=== PATIENT | female | born 1935 | race Caucasian/White ===

== ENCOUNTER 2018-03-30 05:25 | Day surgery (SDC) | payer OTHER ==
[~2018-03-30] VITALS: Ht 152.4 cm; Wt 48.1 kg
--- NOTE | ~2018-03-30 | O ---
[facility] [place] [address] OPERATIVE REPORT Name: GEETHA CARTER Room #: 150-5 [facility]#: [id number] Admission: 03/30/18 Attend Phys: Paulino Rosas MD Discharge: Date of : 31 Report #: [id number] THIS REPORT FOR: //name// CC: Graham Rosas DATE OF SERVICE: 03/30/2018 SURGEON: Paulino Rosas MD TERMINAL SUPERINTENDENT: None. PREOPERATIVE DIAGNOSIS: Bilateral lower lid ectropion. POSTOPERATIVE DIAGNOSIS: Bilateral lower lid ectropion. OPERATION PERFORMED: Bilateral lower lid ectropion repair. ANESTHESIA: Local with IV sedation. COMPLICATIONS: None. INDICATIONS FOR PROCEDURE: This patient has bilateral acquired lower lid ectropion with chronic tearing and discharge. The current procedures are undertaken in order to improve the patient's visual function, lacrimal outflow, and level of comfort. Informed consent was obtained to include but not limit to the risk of loss of vision, bleeding, infection, scarring, failure to improve the problem and need for further surgery. DESCRIPTION OF OPERATION: The patient was taken to the operating room where 2% Xylocaine with epinephrine mixed with equal parts of 0.75% Marcaine with Wydase was administered transcutaneously and transconjunctivally to each lower lid and lateral canthal area. The patient was then prepped and draped in the usual sterile fashion. A Zehar clamp was then used to clamp the left lateral canthus following which a sharp canthotomy and cantholysis were performed. The tarsal strip was prepared laterally, removing the lash bearing portion of the redundant lid margin and the redundant tarsal plate. Hemostasis was achieved with a monopolar cautery, as it was throughout the case. The tarsal strip was then secured to the internal portion of the lateral orbital tubercle with two interrupted 5-0 Prolene sutures. The lateral canthal angle was sharply reformed as the subcutaneous structures and the skin were closed with multiple interrupted 6-0 plain gut sutures. Attention was then turned to the right side where the same procedure was [facility] [address] [place] [address] OPERATIVE REPORT Name: EMMAGEETHA Room #: 150-5 [facility]#: [id number] Admission: 03/30/18 Attend Phys: Paulino Rosas MD Discharge: Date of : 31 Report #: [id number] performed. The wounds were cleaned and dressed with ophthalmic antibiotic ointment. The patient was then transported to the recovery area, having tolerated the procedure well with no anesthetic or operative complications being noted. By: [id number] Paulino Rosas MD /nt
[~2018-03-30 05:25] MED LIST: ASPIR 8181 MG PO; BUSPIRONE HCL10 MG PO; CELEBREX 200 M200 M1 PO; HYDROCHLOROTH12.5 M1 PO; NORVASC10 MG PO; OXYBUTYNIN 5 MG5 M2 PO; PRESERVISION A1 EACH PO; PRILOSEC 20 MG20 MG PO; RESTASIS1 EACH OPHTHALMIC; VITAMIN B-12500 MCG PO; ZOCOR20 MG PO; [UNRECOGNIZED DRUG - OTHER] PO
[2018-03-30 08:09] LABS: CALCIUM 9.5 mg/dL (8.5-10.1); CREATININE 0.7 mg/dL (0.6-1.0); POTASSIUM 3.5 mmol/L (3.5-5.1)
[2018-03-30 08:28] VITALS: BP 139/70
== END 2018-03-30 10:40 | disposition home or self-care (01) ==
LOC: OR 05:25 → TBA 05:26 → OR 10:26
PROVIDERS: Ophthalmology
DX: H02.105 Unspecified ectropion of left lower eyelid (principal); H02.102 Unspecified ectropion of right lower eyelid; I10 Essential (primary) hypertension; E78.5 Hyperlipidemia, unspecified; K21.9 Gastro-esophageal reflux disease without esophagitis; F32.9 Major depressive disorder, single episode, unspecified; F41.9 Anxiety disorder, unspecified; Z85.828 Personal history of other malignant neoplasm of skin; Z90.710 Acquired absence of both cervix and uterus; Z98.890 Other specified postprocedural states; Z88.0 Allergy status to penicillin; Z79.82 Long term (current) use of aspirin; Z79.899 Other long term (current) drug therapy
CPT/HCPCS: 50010; 50101; 50386; 50398; 51636; 56527; 56531; 62110; 62850; 70005